=== PATIENT | female | born 1995 | race Caucasian/White ===

== ENCOUNTER 2020-02-10 10:43 | Emergency (ER) | payer MEDICAID, SELFPAY ==
[2020-02-10 10:44] VITALS: BP 120/85; PULSE 85; RESP 20; TEMP 36.8; O2SAT 98; BMI 34.3
--- NOTE | 2020-02-10 10:56 | HMH.EDEAR ---
ED Disposition Clinical Impression: Ear foreign body Disposition: Home, Self-Care Condition on Discharge: Good - Critical Care Critical Care Time: No Attestation: On , the high probability of a clinically significant, sudden or life threatening deterioration of the following system(s) required my full and direct attention, intervention and personal management. The time I documented below is in addition to time spent performing reported procedures but includes the following listed in this critical care notation. Medical Decision Making - Medical Records Medical records reviewed: Yes: I reviewed the patient's medical records. - Charles Inquiry Pt receiving controlled substance: No - Lab Data Lab results reviewed: Yes: I reviewed the patient's lab results. Ear HPI - General Stated complaint: Bug in left ear Time Seen by Provider: 02/10/20 10:57 Source of Information: Patient - History of Present Illness HPI Narrative: 25-year-old female presents with an insect in her left ear. She states that she noticed it when she woke up this morning she feels like it called in her ear when she was sleeping last night. Patient denies any overt pain patient denies any discomfort but she definitely can feel the insect move in her ear. She denies any other symptoms such as shortness of breath, cough, headache, sore throat malaise, fatigue, nausea vomiting diarrhea and fever. [facility] History - Hepatitis A Screen Attestation statement:: This patient has been screened for Hepatitis A risk factors. I have reviewed the patient's past medical history: Yes ROS Obtained: Yes All systems reviewed & no additional complaints - Constitutional Constitutional: Reports system reviewed and no additional complaints, except as docu - Eyes Eyes: Reports system reviewed and no additional complaints, except as docu - ENT Ears, Nose, Mouth, and Throat: Reports system reviewed and no additional complaints, except as docu - Cardiovascular Cardiovascular: Reports system reviewed and no additional complaints, except as docu - Respiratory Respiratory: Yes system reviewed and no additional complaints, except as docu - Gastrointestinal Gastrointestingal: Reports: system reviewed and no additional complaints, except as docu - Genitourinary Male Genitourinary: Reports system reviewed and no additional complaints, except as docu Female Genitourinary: Reports system reviewed and no additional complaints, except as docu - Musculoskeletal Musculoskeletal: Reports system reviewed and no additional complaints, except as docu - Integumentary/Breasts Skin/Breast: Reports system reviewed and no additional complaints, except as docu - Neurologic Neurologic: Reports system reviewed and no additional complaints, except as docu - Endocrine Endocrine: Reports system reviewed and no additional complaints, except as docu - Hematologic/Lymphatic Henatologic/Lymphatic: Reports system reviewed and no additional complaints, except as docu - Allergic/Immunologic Allergic/Immunologic: Reports system reviewed and no additional complaints, except as docu Physical Exam - General General appearance: alert, in no apparent distress - Head Head exam: atraumatic - Eye Eye exam: Present: normal appearance - ENT ENT exam: Present: normal exam - Neck Neck exam: Present: normal inspection - Chest Chest inspection: Present: normal inspection - Respiratory Respiratory exam: Present: normal lung sounds bilaterally - Cardiovascular Cardiovascular exam: Present: regular rate - Abdominal Exam Abdominal exam: Present: soft - External exam: Present: normal external exam - Extremities Exam Extremities exam: Present: normal inspection - Back Exam Back exam: Present: normal inspection - Neurological Exam Neurological exam: Present: alert, oriented X3 - Psychiatric Psychiatric exam: Present: normal affect - Skin Skin exam: Present:
[2020-02-10 11:19] VITALS: BP 123/85; PULSE 85; RESP 20; TEMP 36.6; O2SAT 98
== END 2020-02-10 11:20 | disposition home or self-care (01) ==
PROVIDERS: Emergency Provider Family Medicine
DX: T16.9XXA Foreign body in ear, unspecified ear, initial encounter (principal)
CPT/HCPCS: 69200; 99282

== ENCOUNTER 2021-02-23 10:38 | Emergency (ER) | payer SELFPAY ==
[2021-02-23 10:39] VITALS: BP 120/81; PULSE 101; RESP 16; TEMP 37.1; O2SAT 98; BMI 33.4
[2021-02-23 11:15] VITALS: BP 120/81; PULSE 101; RESP 16; TEMP 37.1; O2SAT 98; BMI 33.3
--- NOTE | 2021-02-23 11:33 | XR_ITS ---
PROCEDURE INFORMATION: Exam: XR Right Wrist Exam date and time: 02/23/2021 11:33 AM Age: 26 years old Clinical indication: Pain; Wrist; Right TECHNIQUE: Imaging protocol: XR Right wrist. Views: 3 or more views. COMPARISON: No relevant prior studies available. FINDINGS: Bones/joints: Normal. Soft tissues: Normal. IMPRESSION: No acute findings.
--- NOTE | 2021-02-23 11:44 | HMH.EDUTC ---
[facility] [place] Clinical Impression: Cellulitis Qualifiers: Site of cellulitis: unspecified site Qualified Code(s): L03.90 - Cellulitis, unspecified Wrist sprain Qualifiers: Encounter type: initial encounter Laterality: right Qualified Code(s): S63.501A - Unspecified sprain of right wrist, initial encounter Disposition: Home, Self-Care Condition on Discharge: Good Instructions: Trimethoprim/Sulfamethoxazole (Alternative Therapy), Cellulitis, DI for Wrist Sprain, Cephalexin Additional Instructions: *Start antibiotic(s) immediately and be sure to take as ordered for the FULL length of time although you may be feeling better or start to see improvement in the next 24-48 hours *Monitor closely. Outlined redness so that you can monitor easier. Follow up immediately for new or worsening symptoms including but not limited to redness, swelling, streaking from site fever or chills. *Warm compress 15 minutes 3-4 times day *Never squeeze or pop these on your own. Seek immediate medical attention next time this occurs *Monitor Temp. Tylenol every 4 hours as needed and ibuprofen every 6 hours as needed (as long as your primary care doctor has told you that it is ok to take both. For fever, aches, pain. ER if no less that 101 despite Tylenol and ibuprofen Follow up with your family doctor/primary care physician in the next 48-72 hours if no improvement *RICE, Rest the extremity, Ice 15-20 minutes 3-4 times daily, Compress- wear the salvador wrap as discussed as much as possible to help reduce swelling and pain, Elevate the extremity when at rest *Salvador wrap is for support and help control swelling, use it except in the shower. Be sure that is not to tight but not to loose either *Elevate when resting *Ibuprofen every 6-8 hours as needed for pain an inflammation. If need something more can take Tylenol in between doses of Ibuprofen to help Immediately follow up with your family doctor for new or worsening of symptoms, or no noticeable improvement over the next 3-5 days Follow up with Family Doctor in the next 24-48 hours if any worsening of symptoms or no improvement Prescriptions: Sulfamethoxazole/Trimethoprim [Bactrim DS tablet] 1 each PO BID 7 Days #14 tab Transmission Status: Received by [id number] cephALEXin [cephALEXin 500mg capsule*] 500 mg PO Q6H 7 Days #28 cap Transmission Status: Received by [id number] Referrals: Marilyn Olivier APRN [Primary Care Provider] - As needed Forms: Work/School Release Time of Disposition: 12:14 Medical Decision Making - Charles Inquiry Pt receiving controlled substance: No Charles was queried for this patient: No Vital Signs: 02/23/21 10:39 02/23/21 11:15 02/23/21 12:17 Temperature 98.7 F 98.7 F 98.7 F Temperature Source Oral Oral Pulse Rate 101 H Pulse Rate [Right] 101 H 101 H Respiratory Rate 16 16 16 Blood Pressure 120/81 Blood Pressure [Right Arm] 120/81 120/81 Blood Pressure Mean [Right Arm] 94 94 Blood Pressure Source [Right Arm] Automatic Cuff Blood Pressure Position [Right Arm] Sitting 02 Sat by Pulse Oximetry 98 98 Oxygen Delivery Method Room Air Room Air - Radiology Data #1 Image(s): Wrist Image Reviewed: Yes I reviewed the patient's radiology image Preliminary Findings: No Fracture Seen Medical Decision Narrative: Patient denies chance of [facility] [place]PI - General Stated complaint: feet swollen/red, rash Time Seen by Provider: 02/23/21 11:45 Mode of Arrival: Ambulatory Source of Information: Patient Limitations: No Limitations Description of Symptoms (Recalled from Triage Doc. by RN): PATIENT REPORTS SHE HAS RAISED RED SPOTS ON HER LOWER LEGS FOR THE LAST WEEK AND A HALF. PT REPORTS THE AREAS ARE PAINFUL TO TOUCH. PT REPORTS PAINFUL WEIGHT BEARING. UPON ASSESMENT, PT HAS PALPABLE DORSAL PEDAL PULSES WITH LESS THAN 2 SECONDS CAP REFILL. PATIENT ALSO C/O SWOLLEN AND PAINFUL RIGHT WRIST HEENT Symptoms (Recalled from RN notes): No Resp Symp
[2021-02-23 12:17] VITALS: BP 120/81; PULSE 101; RESP 16; TEMP 37.1; O2SAT 98
== END 2021-02-23 12:20 | disposition home or self-care (01) ==
PROVIDERS: Emergency Provider Nurse Practitioner; PCP Nurse Practitioner Family
DX: S63.501A Unspecified sprain of right wrist, initial encounter (principal); L03.116 Cellulitis of left lower limb; L03.115 Cellulitis of right lower limb
CPT/HCPCS: 73110; 99202; G0463

== ENCOUNTER → 2022-11-19 23:44 | Outpatient (CLI) | payer OTHER, SELFPAY ==
[2022-11-19 19:18] LABS: Alanine Aminotransferase 19 U/L (12-78); Albumin/Globulin Ratio 1.3 (1.1-1.8); Alkaline Phosphatase 71 U/L (38-126); Aspartate Amino Transferase 27 U/L (14-36); Bilirubin,Total 0.5 mg/dl (0.2-1.3); Blood Urea Nitrogen 7 mg/dl (7-17); Calcium 8.6 mg/dl (8.4-10.2); Carbon Dioxide 22 mmol/L (22.0-30.0); Chloride 109 mmol/L (98-107); Estimated Glomerular Filt Rate 118 ml/min (>60); GFR (African American) 143 ML/MIN (>60); Globulin 3.1 g/dL (1.3-3.2); Glucose 88 mg/dl (74-100); Potassium 3.8 mmoL/L (3.5-5.1); Total Protein,Serum 7.1 g/dl (6.3-8.2)
[2022-11-19 19:25] LABS: Anion Gap 12.8 mEq/L (5-15); Sodium 140 mmol/L (136-145)
[2022-11-19 19:48] LABS: Basophils # 0.1 K/mm3 (0-0.2); Basophils % 0.8 % (0.1-2.0); Eosinophils # 0.3 K/mm3 (0.0-0.4); Eosinophils % 3.1 % (0.1-12.0); Hematocrit 39.5 % (37.0-47.0); Hemoglobin 12.7 g/dL (12.2-16.2); Lymphocytes # 2.7 K/mm3 (0.7-4.5); Mean Corpuscular HGB Conc 32.2 g/dL (31.8-35.4); Mean Corpuscular Hemoglobin 29.4 pg (27.0-31.2); Mean Corpuscular Volume 91.2 fl (81-99); Mean Platelet Volume 9.7 fl (7.4-10.4); Monocytes # 0.7 K/mm3 (0.1-1.0); Monocytes % 7.7 % (1.7-9.3); Neutrophils # 4.9 K/mm3 (1.8-7.8); Neutrophils % 57.4 % (37.0-80.0); Platelet Count 390 K/mm3 (142-424); Red Blood Count 4.33 M/mm3 (4.20-5.40); Red Cell Distribution Width 13.1 % (11.5-17.5); Thyroid Stimulating Hormone 2.47 uIU/mL (0.465-4.68); White Blood Count 8.5 K/mm3 (4.8-10.8)
== END ==
PROVIDERS: PCP Nurse Practitioner Family; Visit Provider Nurse Practitioner Family
DX: F32.A Depression, unspecified (principal); Z79.899 Other long term (current) drug therapy
CPT/HCPCS: 80053; 84443; 85025

== ENCOUNTER → 2023-02-02 12:36 | Outpatient (CLI) | payer OTHER, SELFPAY ==
[2023-02-06 18:23] LABS: I001-IgE Honey Bee 0.48 kU/L (Class I); I005-IgE Hornet Yellow 0.14 kU/L (Class 0/I)
== END ==
PROVIDERS: PCP Family Medicine; Visit Provider Allergy & Immunology
DX: T63.441A Toxic effect of venom of bees, accidental (unintentional), initial encounter (principal)
CPT/HCPCS: 36415; 83520; 86003

== ENCOUNTER 2023-11-23 19:36 | Outpatient (CLI) | payer OTHER, SELFPAY | END 2023-11-23 23:59 | LOC: LAB.DROPOF 19:36 | PROVIDERS: PCP Family Medicine; Visit Provider Family Medicine | DX: J02.9 Acute pharyngitis, unspecified (principal) | CPT/HCPCS: 87070 ==